=== PATIENT | female | born 1975 | race Two or more races ===

== ENCOUNTER → 2020-05-15 | Outpatient (CLI) | payer OTHER ==
[~2020-05-15] MED LIST: GING500C PO; IBUP200T64 PO; LISI-170 PO; TURMERIC PO
[2020-05-15 14:46] LABS: ALANINE AMINOTRANSFERASE 30 U/L (12-78); ALBUMIN 3.8 g/dL (3.4-5.0); ANION GAP 6 mmol/L (5-15); CALCIUM 9.1 mg/dL (8.5-10.1); CHLORIDE 112 mmol/L (98-107); CREATININE 1.71 mg/dL (0.55-1.02)
[2020-05-15 14:48] LABS: ALKALINE PHOSPHATASE 78 U/L (45-117); BILIRUBIN,TOTAL 0.4 mg/dL (0.2-1.0); TOTAL PROTEIN 7.7 g/dL (6.4-8.2)
== END | disposition home or self-care (01) ==
LOC: STAR 13:31
PROVIDERS: ATTEND Surgery
DX: Z01.818 Encounter for other preprocedural examination (principal)
CPT/HCPCS: 36415; 80053

== ENCOUNTER 2020-05-18 08:56 | Outpatient (CLI) | payer OTHER ==
[2020-05-18] MEDS ORDERED: SODIUM BICARB 4.2%, 10ML SYRINGE ONE (10:33)
[2020-05-18] MEDS ORDERED: LIDOCAINE 1%-EPI 1:100K, 30ML ONE (10:33)
[2020-05-18] MEDS ORDERED: LIDOCAINE 1%, 20ML ONE (10:33)
== END 2020-05-18 23:59 | disposition home or self-care (01) ==
LOC: CFH 08:56
PROVIDERS: ATTEND Surgery
DX: D24.1 Benign neoplasm of right breast (principal)
CPT/HCPCS: 19285; 77065; J3490

== ENCOUNTER 2020-05-22 06:13 | Day surgery (SDC) | payer OTHER ==
[2020-05-15 13:53] VITALS: BP 165/114
[~2020-05-22] VITALS: Ht 157.5 cm; Wt 50.0 kg
[2020-05-22] MEDS ORDERED: LACTATED RINGERS 1,000 ML IV SCH (06:33)
[2020-05-22] MEDS ORDERED: CHLORHEXIDINE 15 ML UDC MM ONE (07:00)
[2020-05-22] MEDS ORDERED: LIDOCAINE/PRILOCAINE CRM W/TEG 5GM TP ONE (07:00)
[2020-05-22] MEDS ORDERED: BUPIVACAINE/PF-EPI 0.5% 1:200K ONE (07:02)
[2020-05-22] MEDS ORDERED: FENTANYL PF 250 MCG/5ML ONE (07:08)
[2020-05-22] MEDS ORDERED: MIDAZOLAM 1 MG/ML, 2ML ONE (07:08)
[2020-05-22] MEDS ORDERED: LIDOCAINE GEL 2%, 5ML ONE (07:11)
[2020-05-22 07:12] LABS: HCG UR SG 1.011 (1.003-1.030)
[2020-05-22] MEDS ORDERED: SCOPOLAMINE 1MG PATCH TD ONE (07:19)
[2020-05-22] MEDS ORDERED: ONDANSETRON 2MG/ML, 2ML ONE (07:27)
[2020-05-22] MEDS ORDERED: ROCURONIUM 10MG/ML,5ML ONE (07:27)
[2020-05-22] MEDS ORDERED: SUCCINYLCHOLINE 20 MG/ML, 10ML ONE (07:27)
[2020-05-22] MEDS ORDERED: DEXAMETHASONE 4 MG/ML, 1ML ONE (07:27)
[2020-05-22] MEDS ORDERED: PROPOFOL 10 MG/ML, 20ML ONE (07:27)
[2020-05-22] MEDS ORDERED: CEFAZOLIN 1,000 MG ONE (07:27)
[2020-05-22] MEDS ORDERED: FENTANYL PF 100 MCG/2ML IV PRN (08:00)
[2020-05-22] MEDS ORDERED: HYDROcodone/APAP 7.5-325MG/15ML UDC PO PRN (08:00)
[2020-05-22] MEDS ORDERED: DIPHENHYDRAMINE 50 MG/ML, 1ML IVPush PRN (08:00)
[2020-05-22] MEDS ORDERED: LABETALOL 5MG/ML, 20ML IV PRN (08:00)
[2020-05-22] MEDS ORDERED: PROMETHAZINE 25 MG/ML, 1ML IVPush PRN (08:00)
[2020-05-22] MEDS ORDERED: hydrALAzine 20 MG/ML, 1ML IV PRN (08:00)
[2020-05-22] MEDS ORDERED: MEPERIDINE/PF 25MG/0.5ML IVPush PRN (08:00)
[2020-05-22] MEDS ORDERED: HYDROmorphone 1 MG/ML, 1ML INJ IVPush PRN (08:00)
[2020-05-22] MEDS ORDERED: HALOPERIDOL 5 MG/ML IV PRN (08:00)
[2020-05-22] MEDS ORDERED: PROMETHAZINE 25 MG/ML, 1ML ONE (08:27)
[2020-05-22] MEDS ORDERED: HALOPERIDOL 5 MG/ML ONE (08:46)
== END 2020-05-22 11:15 | disposition home or self-care (01) ==
LOC: OUT 06:13
PROVIDERS: ATTEND Surgery
DX: D24.1 Benign neoplasm of right breast (principal); Z11.59 Encounter for screening for other viral diseases; N60.41 Mammary duct ectasia of right breast; I10 Essential (primary) hypertension; Z79.1 Long term (current) use of non-steroidal anti-inflammatories (NSAID); Z79.899 Other long term (current) drug therapy; Z88.8 Allergy status to other drugs, medicaments and biological substances; Z91.048 Other nonmedicinal substance allergy status; Z90.49 Acquired absence of other specified parts of digestive tract
CPT/HCPCS: 19125; 36415; 76098; 81025; 87635; 88305; J0330; J0690; J1100; J1630; J2250; J2405; J2550; J2704; J3010; J7120